=== PATIENT | female | born 1940 | race Two or more races ===

== ENCOUNTER → 2017-08-11 | Outpatient (CLI) | payer OTHER ==
--- NOTE | 2017-08-12 06:43 | HKNOTE ---
DATE OF SERVICE: 08/11/2017 CHIEF COMPLAINT: Right knee pain. HISTORY OF PRESENT ILLNESS: This is a 77-year-old female complaining of severe debilitating right knee pain that has been worsening. The pain is constant. It interferes with her activities of daily living. She is unable to ambulate. She uses a cane. She has seen Dr. Manpreet Damon at [facility] and was told that she needs a total knee arthroplasty. She has attempted activity modifications and pain medications, without any pain relief. The pain is rated as 10/10 daily. It is sharp. It is mostly on the outside of the right knee. She denies any groin, hip or back pain. PHYSICAL EXAMINATION: GAIT: Antalgic gait. Use of a cane. RIGHT HIP: Range of motion 0-90 degrees, 50 degrees external rotation, 20 degrees internal rotation. Negative straight leg raise. Negative Herbert's. Negative Stinchfield test. RIGHT KNEE: Valgus alignment. Tender over the lateral joint line. Crepitus with range of motion; 10-75 degrees range of motion passively correctable to neutral alignment. Stable to varus/valgus stress. Negative Kai's, negative anterior drawer, negative posterior drawer, negative Faisal's test. NEUROVASCULAR: Strength of the tibialis anterior, gastrocsoleus, hamstrings, and quadriceps 5/5. Sensation intact to light touch throughout the right lower extremity. Palpable pulses. IMAGING: RIGHT KNEE: Three-views of the right knee demonstrate valgus alignment. There is end-stage degenerative changes of the lateral compartment with joint space narrowing, marginal osteophytes, and subchondral sclerosis. There are also degenerative changes of the patellofemoral joint with osteophytes. IMPRESSION: A 77-year-old female with end-stage right knee osteoarthritis who has failed nonoperative management. PLAN: I discussed the risks associated with a right total knee arthroplasty. The patient would like to proceed with surgery. We will request authorization for right total knee arthroplasty. She will return in 4 weeks for preoperative counseling. Dictated By: Oumou Ortiz MD /hermelinda/mary /Document#: [id number]
== END | disposition home or self-care (01) ==
LOC: HKI 14:25
PROVIDERS: ATTEND Orthopaedic Surgery Adult Reconstructive Orthopaedic Surgery
DX: M17.11 Unilateral primary osteoarthritis, right knee (principal)
CPT/HCPCS: G0463

== ENCOUNTER → 2017-09-29 | Outpatient (CLI) | payer OTHER ==
--- NOTE | 2017-09-29 17:56 | RADRPT ---
PROCEDURE: Right knee radiographs. CLINICAL INDICATION: Right knee pain. TECHNIQUE: Three views. Weight bearing. Frontal, lateral, and patellar view. COMPARISON: No prior studies are available for comparison. FINDINGS: There is no fracture or dislocation. The soft tissues are normal. There is diffuse osteopenia. There are degenerative changes with osteophytes arising from all 3 join t compartment margins. There is lateral joint compartment narrowing, subarticular sclerosis, and def ormity. There is associated valgus deformity. There is no lytic or blastic lesion. There is no radiopaque foreign body. IMPRESSION: 1. Severe degenerative changes of the right knee with valgus deformity. 2. Diffuse osteopenia. RPTAT: QQ .Darwin Banegas MD, MD Date Time Electronically viewed and signed by .Darwin Banegas MD, on 09/29/2017 17:56 .R/
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
== END | disposition home or self-care (01) ==
LOC: HKI 13:27
PROVIDERS: ATTEND Orthopaedic Surgery Adult Reconstructive Orthopaedic Surgery
DX: M17.11 Unilateral primary osteoarthritis, right knee (principal); M21.061 Valgus deformity, not elsewhere classified, right knee
CPT/HCPCS: G0463

== ENCOUNTER 2017-10-05 06:24 | Inpatient (IN) | payer OTHER ==
[2017-10-04 10:30] VITALS: BMI 25.8
[~2017-10-05] VITALS: Ht 152.4 cm; Wt 56.9 kg
[2017-10-05] VITALS (29 sets, daily range): BP systolic 101–141; BP diastolic 49–95; PULSE 64–96; RESP 11–46; Ht 152.4 cm; Wt 56.9 kg
[~2017-10-05 06:24] MED LIST: ROPIVACAINE 0.2% 60 ML, morphine SULFATE (PF) 4 MG, CLONIDINE 100 MCG, KETOROLAC 30 MG,... INJ SCH
[2017-10-05] MEDS ORDERED: OXYCODONE/ACETAMINOPHEN (5/325) TAB PO PRN ×2 (06:30)
[2017-10-05] MEDS ORDERED: EPHEDrine SULFATE 50 MG/5 ML SYG IV PRN (06:30)
[2017-10-05] MEDS ORDERED: LABETALOL HCL 20MG INJ IV PRN (06:30)
[2017-10-05] MEDS ORDERED: HYDROmorphONE (0.2 MG/ML) 10ML SYG IV PRN ×3 (06:30)
[2017-10-05] MEDS ORDERED: MIDAZOLAM 1 MG/ML 2 ML INJ IV PRN (06:30)
[2017-10-05] MEDS ORDERED: hydrALAzine 20 MG INJ IV PRN (06:30)
[2017-10-05] MEDS ORDERED: DIPHENHYDRAMINE 50 MG INJ IV PRN (06:30)
[2017-10-05] MEDS ORDERED: morphine (1 MG/ML) 10ML SYRINGE IV PRN ×3 (06:30)
[2017-10-05] MEDS ORDERED: FENTAnyl 50 MCG/ML VIAL IV PRN ×2 (06:30)
[2017-10-05] MEDS ORDERED: MEPERIDINE 25 MG INJ IV PRN (06:30)
[2017-10-05] MEDS ORDERED: ATROPINE 1 MG/10 ML SYRINGE IV PRN (06:30)
[2017-10-05] MEDS ORDERED: ONDANSETRON 4 MG INJ IV PRN (06:30)
--- NOTE | 2017-10-05 06:35 | HPN ---
Date/Time of Note Date/Time of Note DATE: 10/05/17 TIME: 06:34 Interval H&P Admission Note Pt. seen H&P reviewed: No system changes CHRIS PETERS PA-C Oct 05, 2017 06:35
[2017-10-05] MEDS ORDERED: PROPOFOL 20 ML ONE (06:45)
[2017-10-05] MEDS ORDERED: NEOSTIGMINE 3 MG/3 ML SYRINGE ONE (06:45)
[2017-10-05] MEDS ORDERED: ROCURONIUM 50 MG INJ ONE (06:45)
[2017-10-05] MEDS ORDERED: GLYCOPYRROLATE 0.4 MG INJ ONE (06:45)
[2017-10-05] MEDS ORDERED: LIDOCAINE 2% (SDV) 5 ML INJ ONE (06:45)
[2017-10-05] MEDS ORDERED: MIDAZOLAM 1 MG/ML 2 ML INJ ONE (06:46)
[2017-10-05] MEDS ORDERED: FENTAnyl 50 MCG/ML VIAL ONE (06:47)
[2017-10-05] MEDS ORDERED: DEXAMETHASONE 4 MG/ML 1 ML INJ ONE (06:47)
[2017-10-05] MEDS ORDERED: ONDANSETRON 4 MG INJ ONE (06:47)
[2017-10-05] MEDS ORDERED: LIDOCAINE 2%/EPI 30 ML INJ ONE (06:58)
[2017-10-05] MEDS ORDERED: ROPIVACAINE 0.5 % 30 ML VIAL ONE (06:59)
[2017-10-05] MEDS ORDERED: DEXAMETHASONE 4 MG/ML 1 ML INJ IV ONE (07:00)
[2017-10-05] MEDS ORDERED: SOD CHLORIDE 0.9% IVPB ONE (07:00)
[2017-10-05] MEDS ORDERED: oxyCODONE (CR) 10 MG TAB [oxyCONTIN] PO ONE (07:00)
[2017-10-05] MEDS ORDERED: LANSOPRAZOLE 30 MG CAP PO ONE (07:00)
[2017-10-05] MEDS ORDERED: CEFAZOLIN 2 GM/50 ML (PMX) 50 ML IVPB ONE (07:00)
[2017-10-05] MEDS ORDERED: LACTATED RINGER'S 1,000 ML IV* SCH (07:00)
[2017-10-05] MEDS ORDERED: TRANEXAMIC ACID IVPB ONE (07:00)
[2017-10-05] MEDS ORDERED: CELECOXIB 200 MG CAP PO ONE (07:00)
[2017-10-05] MEDS ORDERED: ACETAMINOPHEN 1000MG/100ML IV 100 ML IVPB ONE (07:00)
[2017-10-05] MEDS ORDERED: ONDANSETRON 4 MG INJ IV ONE (07:00)
[2017-10-05] MEDS ORDERED: LABETALOL HCL 20MG INJ ONE (08:28)
[2017-10-05] MEDS ORDERED: hydrALAzine 20 MG INJ ONE (09:21)
[2017-10-05] MEDS ORDERED: CEFAZOLIN 1 GM INJ ONE (09:46)
[2017-10-05] MEDS: TRANEXAMIC ACID 1,000 MG in SOD CHLORIDE 0.9% 100 ML IV SCH ×2 (09:50→10:00)
[2017-10-05] MEDS: DEXTROSE 5%-LR 1,000 ML IV SCH ×3 (11:08→23:21)
--- NOTE | 2017-10-05 11:12 | SIPON ---
Date/Time of Note Date/Time of Note DATE: 10/05/17 TIME: 11:09 Operative Report Preoperative Diagnosis Right knee osteoarthritis Postoperative Diagnosis same Operation/Procedure Performed Right total knee arthroplasty Surgeon MD Jasson assistant production manager Jaspreet Weber MD Second assist: CHRIS PETERS PA-C Anesthesia: general Estimated blood loss: 250 - 300 ml's Transfusion Required none Specimen resected bone Grafts/Implants Alicia and Nephew Gensis II Size 4N femur, Size 1 tibia, 32mm patella, 13mm poly, [id number] stem Complications none NAIDA VILLAIVCENCIO MD Oct 05, 2017 11:12
--- NOTE | 2017-10-05 11:16 | PDOCDIS ---
Discharge Instructions DIAGNOSIS Discharge Diagnosis Status post right total knee replacement. CONDITION Patient Condition: Stable HOME CARE INSTRUCTIONS: Diet Instructions: Regular ACTIVITY: Activity Restrictions: No Restrictions Slowly Increase Activity Rest between Activity Avoid heavy lifting No Sexual Activity Do not Drive Do not operate Machinery Do not operate Power Tool Avoid Heavy Housework Keep Limb Elevated (Please keep leg in full extension while lying down/ resting. You may apply 3-4 pillows directly under your foot to keep leg at full extension.) Weight Bearing (As tolerated with front wheeled walker.) Bathing Restrictions: Shower (Keep area clean and dry while showering until postoperative appointment with Dr. payton.) FOLLOW UP/APPOINTMENTS Follow-up Plan Follow-up on postoperative appointment provided to you at your preoperative visit. CHRIS PETERS PA-C Oct 05, 2017 11:16
[2017-10-05] MEDS ORDERED: ALBUTEROL 0.083% (NEB) 2.5 MG/3 ML AMP ONE ×2 (11:26)
[2017-10-05] MEDS ORDERED: BETHANECHOL 25 MG TAB PO PRN (11:30)
[2017-10-05] MEDS ORDERED: BISACODYL 10 MG SUPP PR PRN (11:30)
[2017-10-05] MEDS ORDERED: SENNA/DOCUSATE NA (8.6MG/50MG) TAB PO PRN (11:30)
[2017-10-05] MEDS ORDERED: DIPHENHYDRAMINE 50 MG INJ IM PRN (11:30)
[2017-10-05] MEDS ORDERED: ASPIRIN (EC) 325 MG TAB PO ONE (11:30)
[2017-10-05] MEDS ORDERED: MEPERIDINE 10 MG/ML 30 ML PCA IV PRN (11:30)
[2017-10-05] MEDS ORDERED: MAGNESIUM HYDROXIDE 30ML CUP PO PRN (11:30)
[2017-10-05] MEDS ORDERED: DOCUSATE SODIUM 100 MG CAP PO ONE (11:30)
[2017-10-05] MEDS ORDERED: ZOLPIDEM 5 MG TAB PO PRN (11:30)
[2017-10-05] MEDS ORDERED: COUMADIN NOTE XX SCH (11:30)
[2017-10-05] MEDS ORDERED: NALOXONE (0.4 MG/ML) INJ IV PRN (11:30)
[2017-10-05] MEDS ORDERED: HYDROmorphONE 0.2 MG/ML PCA IV PRN (11:30)
[2017-10-05] MEDS ORDERED: NA PHOSPHATE/BIPHOS 133 ML ENEMA PR PRN (11:30)
[2017-10-05] MEDS ORDERED: RACEPINEPHRINE 2.25%(NEB) 0.5 ML AMP ONE (11:43)
[2017-10-05] MEDS ORDERED: CEFAZOLIN 1 GM/50 ML (PMX) 50 ML IVPB ONE (12:33)
[2017-10-05] MEDS: CEFAZOLIN 1 GM/50 ML (PMX) 50 ML IVPB SCH ×2 (12:37→21:49)
--- NOTE | 2017-10-05 12:41 | OPR ---
DATE OF OPERATION: 10/05/2017 PREOPERATIVE DIAGNOSIS: Right knee osteoarthritis. POSTOPERATIVE DIAGNOSIS: Right knee osteoarthritis. PROCEDURES PERFORMED: 1. Right total knee arthroplasty, CPT code 33515. SURGEON: Naida Ortiz MD ELECTROMECHANICAL INSPECTOR: 1. Jaspreet Weber MD 2. NIKOLAI Banda ANESTHESIOLOGIST: Dr. Clemons ANESTHESIA: General. ESTIMATED BLOOD LOSS: 300 mL. COMPLICATIONS: None. SPECIMENS: Resected bone. TOURNIQUET TIME: 86 minutes at 250 mmHg. DISPOSITION: To PACU in stable condition. IMPLANT USED: A Alicia and Nephew Tiffanie II size 4 narrow femur, size 1 tibial baseplate, 32 mm symmetric patella, a 13 mm posterior stabilized polyethylene 10 x 100 mm stem on the tibial baseplate. INDICATION FOR PROCEDURE: This is a 77-year-old female with endstage osteoarthritis of the right knee with had failed nonoperative management. Risks , benefits, alternatives of surgical intervention were discussed with the patient and informed consent was obtained. The risks of surgery include but are not limited to infection, deep venous thrombosis, pulmonary embolism, damage to neurovascular structures including the peroneal nerves, wound healing problems, loosening of the prosthesis, wear of prosthesis, need for revision surgery, need for blood transfusion, heart attack, stroke, risks associated with anesthesia and even . DESCRIPTION OF PROCEDURE: The patient was met in the preoperative suite and the correct operative site was confirmed and marked. She was then brought into operating room. After induction of general anesthesia, she was placed in the supine position on the operating room table. A tourniquet was applied to the right upper thigh, and the right lower extremity was prepped and draped in the usual sterile fashion. Before starting, a timeout was taken to identify the correct operative site and confirm that preoperative antibiotics consisting of 2 grams of IV Ancef, along with 1 gram of tranexamic acid were administered. At this point, the right leg was then elevated and exsanguinated using an Esmarch and tourniquet was insufflated for the above noted time. A midline incision was made and a median parapatellar arthrotomy was then performed. The lateral patellar retinacular ligaments were released and the patella was retracted laterally. The sleeve of tissue was released from the proximal medial tibia. The cruciate ligaments and the menisci were excised along with the suprapatellar fat pad. At this point, the intramedullary drill was then used and the distal femoral cutting block was pinned into place. The distal femoral cut was then completed. The femur was then subsequently sized to a size 4. The 4-in-1 cutting block was then pinned in 3 degrees of external rotation. The anterior and posterior condylar cuts followed by the anterior and manager product marketing chamfer cuts were then completed. At this point, the tibia was then subluxed anteriorly. Attempt was to use the navigation OrthAlign, but unsuccessful. The intramedullary tibial resection guide was then placed and 8 mm was resected off the medial tibia and 2 mm off the lateral tibia. At this point, the extension and flexion gaps were checked. It was noted that the knee was still slightly tighter laterally. Pie crusting technique of the posterior capsule was performed. The flexion, extension gaps were noted to be equal. At this point, the patella was then measured with calipers to 17 mm. An oscillating saw was used to cut 5 mm off the patella. The patella was sized to a 32 mm and then the 3 holes were drilled for the patellar button. The knee was then brought into flexion. The femoral component was placed and the femoral box cut was then made. The trial components were placed. The tibia was sized to a size 1. Trial components were placed. The knee was taken through range of motion using a 9 mm poly and noted to be hyperextension. A 13 mm polyethylene was placed and the knee was noted to have full extension with greater than 120 degrees of flexion and stable to varus valgus stress. The keel was punched for the tibia as well as a drill made for the stem. Trial components were removed. The knee was then thoroughly irrigated with pulse lavage and dried. The appropriate sized components were then cemented with the removal of excess cement. The trial 10 mm polyethylene was used while the knee was held in extension until the cement cured. Similarly, the patella was pulse lavaged, dried and the patellar button was cemented. Once the cement had cured, the trial polyethylene was removed and a 13 mm posterior stabilized polyethylene was placed. Again, stability was unchanged with full range of motion. The tourniquet was deflated and the tranexamic acid and antibiotics were redosed. The extensor mechanism was closed using #1 Vicryl interrupted [id number] fashion followed by closure with subcutaneous 2-0 Vicryl and the skin with 3-0 Monocryl in subcuticular fashion with Steri-Strips. Sterile dressing, Jonathan wrap and a PolarCare unit were applied. There were no complications. She was transferred to the postoperative care unit in stable condition. POSTOPERATIVE CARE: Patient will be weightbearing as tolerated. She will work with physical therapy. She will receive two additional doses of IV Ancef. She will have SCDs along with aspirin 325 mg p.o. b.i.d. for 6 weeks. Upon discharge, she will follow up in my office at [facility] within 2 weeks postoperatively. Dictated By: NAIDA FITZPATRICK/ANUSHKA Conf#: [id number] DID#: [id number] MTDD
--- NOTE | 2017-10-05 13:39 | RADRPT ---
PROCEDURE: Right knee x-ray CLINICAL INDICATION: Postop evaluation. TECHNIQUE: AP, lateral and oblique views of the knee were obtained. COMPARISON: Three-view right knee 09/29/2017. FINDINGS: There is subcutaneous emphysema related to recent total right knee arthroplasty. The components appe ar anatomically aligned. There is an air-fluid level in the suprapatellar bursa. The fibula is unrem arkable as visualized. No drainage tube is identified in place. IMPRESSION: 1. Status post total right knee arthroplasty with postsurgical changes as described. RPTAT:AAJJ Physician Anjali Date Time Electronically viewed and signed by Davi Hernandez Physician on 10/05/2017 13:39 JUAN/
[2017-10-05] MEDS ORDERED: POLYMYXIN/BACITRACIN 1L IRRIG ONE (13:55)
[2017-10-05] MEDS: ACETAMINOPHEN 1000MG/100ML IV 100 ML IVPB SCH ×2 (15:45→21:07)
[2017-10-05] MEDS: oxyCODONE 5 MG TAB PO PRN (15:45)
[2017-10-05] MEDS: GABAPENTIN 100 MG CAP PO SCH (20:43)
--- NOTE | 2017-10-05 21:18 | CONS ---
Date/Time of Note Date/Time of Note DATE: 10/05/17 TIME: 20:58 Assessment/Plan Assessment/Plan Chief Complaint/Hosp Course Assessment and plan 1. Osteoarthritis of right knee status post total right knee total arthroplasty. Continue with orthopedic surgery recommendations. Continue with analgesics. Physical therapy to follow. Consultation process time: Greater than 30 minutes Discussed plan of care with Dr. Soto Problems: Consultation Date/Type/Reason Admit Date/Time Oct 05, 2017 at 06:24 Hx of Present Illness This is a 77-year-old female with history of right knee osteoarthritis, previous cholecystectomy, came to [facility] for elective procedure for right knee total arthroplasty. Patient reports she has been having pain in her right knee since March 2017 which progressively got worse. She did come to [facility] for elective surgery. Patient did undergo right knee pleural plasty and did tolerate procedure well. Vital signs did remain stable. She was able to ambulate with physical therapy today status post surgery. We will evaluate her for the aformentiond issues. 12 point review of systems obtained and entirely negative except that mentioned in the history of Past Medical History Medical/surgical history 1. Recent right knee total arthroplasty. 2. Osteoarthritis Social History Smoking Status: Never smoker Exam/Review of Systems Vital Signs Vitals Vital Signs Date Time Temp Pulse Resp B/P Pulse Ox O2 Delivery O2 Flow Rate FiO2 10/05/17 19:56 98.3 73 20 115/59 96 10/05/17 18:00 Nasal Cannula 2.0 Exam Constitutional: oriented Psych: nl mood/affect Head: normocephalic Eyes: nl conjunctiva Neck: non-tender, supple Respiratory: clear to auscultation Cardiovascular: regular rate and rhythm Gastrointestinal: non-tender, soft Musculoskeletal: nl extremities to inspection Neurological: HORSERADISH MAKER II-XII intact, nl mental status, nl speech Skin: nl turgor Results Results 24 hrs Laboratory Tests Test 10/05/17 12:54 Bedside Glucose 165 Medications Medications Current Medications Dextrose/Lactated Ringer's 1,000 ml @ 80 mls/hr [id number] IV Last administered on 10/05/17 15:53; Admin Dose 80 MLS/HR; Start 10/05/17 at 11:08 Acetaminophen (Ofirmev 1000mg/ 100ml Iv) 100 ml @ 400 mls/hr Q8 IVPB Last administered on 11/8/17at 15:45; Admin Dose 400 MLS/HR; Start 10/05/17 at 14:00 ; Stop 10/07/17 at 06:14 Zolpidem Tartrate (Ambien) 5 mg HS PRN PO INSOMNIA; Start 10/05/17 at 11:30 Ondansetron HCl 4 mg 4 mg Q4H PRN IV NAUSEA AND/OR VOMITING; Start 10/06/17 at 11:30 Cefazolin Sodium (Ancef 1 Gm/50 ml (Pmx)) 50 ml @ 100 mls/hr Q8 IVPB Last administered on 10/05/17t 12:37; Admin Dose 100 MLS/HR; Start 10/05/17 at 14:00 ; Stop 10/06/17 at 06:29 Miscellaneous Information (Note) NOTE XX ; Start 10/05/17 at 11:30 Aspirin (Ecotrin) 325 mg BID PO ; Start 10/06/17 at 09:00 Celecoxib (Celebrex) 200 mg BID PO ; Start 10/06/17 at 09:00 Dexamethasone (Decadron) 4 mg DAILY@07 IV ; Start 10/06/17 at 07:00; Stop 10/09 at 06:59 Pantoprazole (Protonix Tab) 40 mg DAILY@06 PO ; Start 10/06/17 at 06:00 Docusate Sodium/ Ferrous Fumarate (Fritz-Sequels) 1 tab BID PO ; Start 10/06/17 at 09:00 Docusate Sodium (Colace) 200 mg BID PO ; Start 10/06/17 at 09:00; Stop at 08:59 Simethicone (Mylicon) 80 mg TID PRN PO DISTENSION/GAS/BLOATING; Start 10/05/17 at 11:30 Senna/Docusate Sodium (Senokot-S) 2 tab BID PRN PO CONSTIPATION; Start at 11:30 Magnesium Hydroxide (Milk Of Mag) 30 ml HS PRN PO CONSTIPATION; Start 10/05/17 at 11:30 Bisacodyl (Dulcolax Supp) 10 mg DAILY PRN [place] CONSTIPATION; Start 10/05/17 at 11 :30 Sodium Biphosphate/ Sodium Phosphate (Fleet Enema) 133 ml DAILY PRN [place] CONSTIPATION; Start 10/05/17 at 11:30 Diphenhydramine HCl (Benadryl) 25 mg Q4H PRN IM ITCHING OR RASH; Start at 11:30 Naloxone HCl (Narcan) 0.2 mg Q2M PRN IV DECREASED REPIRATORY RATE; Start at 11:30 Gabapentin (Neurontin) 100 mg BID PO Last administered on 10/05/17 20:43; Admin Dose 100 MG; Start 10/05/17 at 21:00; Stop 10/08/17 at 20:59 Oxycodone HCl (Roxicodone) 20 mg Q3H PRN PO PAIN LEVEL 8-10 Last administered on 10/05/17 15:45; Admin Dose 20 MG; Start 10/05/17 at 15:41 Oxycodone HCl (Roxicodone) 10 mg Q3H PRN PO PAIN LEVEL 4-7; Start 10/05/17 at 15:41 DRAGAN ALFONSO Oct 05, 2017 21:17
[2017-10-06] MEDS: CEFAZOLIN 1 GM/50 ML (PMX) 50 ML IVPB SCH (05:37)
[2017-10-06] MEDS: DEXTROSE 5%-LR 1,000 ML IV SCH (05:37)
[2017-10-06] MEDS: PANTOPRAZOLE (EC) 40 MG TAB PO SCH (05:38)
[2017-10-06] MEDS: oxyCODONE 5 MG TAB PO PRN ×4 (05:53→20:11)
[2017-10-06] MEDS: ACETAMINOPHEN 1000MG/100ML IV 100 ML IVPB SCH ×3 (06:14→22:20)
[2017-10-06] MEDS: DEXAMETHASONE 4 MG/ML 1 ML INJ IV SCH (06:15)
[2017-10-06 07:20] LABS: BASOPHILS % 0.2 % (0.0-2.0); EOSINOPHILS % 0.1 % (0.0-7.0); HEMATOCRIT 26.9 % (37.0-47.0); HEMOGLOBIN 8.5 g/dl (12.0-16.0); LYMPHOCYTES # 1.7 10^3/ul (0.8-2.9); LYMPHOCYTES % 16.3 % (15.0-51.0); MEAN CORPUSCULAR HEMOGLOBIN 30.6 pg (29.0-33.0); MEAN CORPUSCULAR HGB CONC 31.6 g/dl (32.0-37.0); MEAN CORPUSCULAR VOLUME 96.8 fl (82.0-101.0); MEAN PLATELET VOLUME 9.9 fl (7.4-10.4); MONOCYTE # 1.2 10^3/ul (0.3-0.9); MONOCYTES % 11.6 % (0.0-11.0); NEUTROPHIL # 7.4 10^3/ul (1.6-7.5); NEUTROPHILS % 71.4 % (39.0-77.0); PLATELET COUNT 309 10^3/UL (140-415); RED BLOOD COUNT 2.78 10^6/ul (4.20-5.40); RED CELL DISTRIBUTION WIDTH 12.5 % (11.5-14.5); WHITE BLOOD COUNT 10.4 10^3/ul (4.8-10.8)
[2017-10-06 08:30] VITALS: BP 119/56; RESP 18
--- NOTE | 2017-10-06 08:33 | PN ---
Date/Time of Note Date/Time of Note DATE: 10/06/17 TIME: 08:30 Assessment/Plan VTE Prophylaxis VTE Prophylaxis Intervention: ambulation, SCD's, other (Aspirin 325 mg) Lines/Catheters IV Catheter Type (from Nrsg): Peripheral IV [place] in Place (from Nrsg): Yes Assessment/Plan Assessment/Plan -Pain Meds as needed -Dressing is clean and intact. -OOB with PT -ASA/SCDs for DVT Prophylaxis -Continue monitoring with Internal Medicine -Patient Stable Subjective 24 Hr Interval Summary 77-year-old female postop day 1 status post right total knee arthroplasty. Patient is doing well with no acute events overnight. Patient does have pain complaints, mostly with movement to the knee. Patient has initiated physical therapy yesterday being able to walk about 5 feet. Pain with weightbearing. Denies any calf pain, chest pain/tightness or shortness of breath. Pain Control: mild Exam/Review of Systems Vital Signs Vitals Vital Signs Date Time Temp Pulse Resp B/P Pulse Ox O2 Delivery O2 Flow Rate FiO2 10/05/17 23:49 98.6 72 18 112/60 96 10/05/17 20:00 Nasal Cannula 2.0 Intake and Output 10/05/17 10/05/17 10/06/17 15:00 23:00 07:00 Intake Total 2221.38 ml 1110 ml 1630 ml Output Total 850 ml 600 ml 1500 ml Balance 1371.38 ml 510 ml 130 ml Exam Free Text/Dictation -No complications with dressing intact. -5/5 Tibialis Anterior, EHL Gastrocnemius/Soleus and Peroneals -Pain with range of motion. Patient able to actively flex up to 20. Patient is able to fully extend today. -Normal Sensation -Palpable DP/PT, Capillary Refill <2 secs -No Distal Edema -Negative Manny Sign/No calf pain -Toes Freely Movable Results Result Diagram: 10/06/17 0648 CHRIS PETERS PA-C Oct 06, 2017 08:33
[2017-10-06] MEDS ORDERED: oxyCODONE 5 MG TAB PO PRN ×2 (09:00)
[2017-10-06] MEDS: ASPIRIN (EC) 325 MG TAB PO SCH ×2 (09:23→20:11)
[2017-10-06] MEDS: GABAPENTIN 100 MG CAP PO SCH ×2 (09:23→20:11)
[2017-10-06] MEDS: FERROUS FUMARATE (SR) TAB PO SCH ×2 (09:23→20:11)
[2017-10-06] MEDS: DOCUSATE SODIUM 100 MG CAP PO SCH ×2 (09:23→20:11)
[2017-10-06] MEDS: CELECOXIB 200 MG CAP PO SCH ×2 (09:23→20:11)
[2017-10-06] MEDS ORDERED: ONDANSETRON 4 MG INJ IV PRN (11:30)
--- NOTE | 2017-10-06 14:30 | PN ---
Date/Time of Note Date/Time of Note DATE: 10/06/17 TIME: 14:26 Assessment/Plan VTE Prophylaxis VTE Prophylaxis Intervention: SCD's Lines/Catheters IV Catheter Type (from Nrs): Peripheral IV Urinary Cath still in place: No Assessment/Plan Chief Complaint/Hosp Course Assessment and plan 1. Osteoarthritis of right knee status post total right knee total arthroplasty. continue PT. analgesics adjusted as needed 2. Anemia. Suspect postsurgical. Monitor for now. dispo/plan. continue PT . adjust analgesics as needed Discussed plan of care with Dr. Soto Problems: Subjective 24 Hr Interval Summary Free Text/Dictation no s/s of distress. still has some pain on right knee Exam/Review of Systems Vital Signs Vitals Vital Signs Date Time Temp Pulse Resp B/P Pulse Ox O2 Delivery O2 Flow Rate FiO2 10/06/17 08:30 98.2 70 18 119/56 95 10/05/17 20:00 Nasal Cannula 2.0 Intake and Output 10/05/17 10/05/17 10/06/17 14:59 22:59 06:59 Intake Total 2221.38 ml 1110 ml 1630 ml Output Total 850 ml 600 ml 1500 ml Balance 1371.38 ml 510 ml 130 ml Exam Constitutional: oriented Psych: nl mood/affect Head: normocephalic Eyes: nl conjunctiva Neck: non-tender, supple Respiratory: clear to auscultation Cardiovascular: regular rate and rhythm Gastrointestinal: non-tender, soft Musculoskeletal: right knee with dressing in place Neurological: PACKAGE HANDLER II-XII intact, nl mental status, nl speech Skin: nl turgor Results Result Diagram: 10/06/17 0648 Results 24 hrs Laboratory Tests Test 10/06/17 06:48 White Blood Count 10.4 Red Blood Count 2.78 L Hemoglobin 8.5 L Hematocrit 26.9 L Mean Corpuscular Volume 96.8 Mean Corpuscular Hemoglobin 30.6 Mean Corpuscular Hemoglobin Concent 31.6 L Red Cell Distribution Width 12.5 Platelet Count 309 Mean Platelet Volume 9.9 Neutrophils % 71.4 Lymphocytes % 16.3 Monocytes % 11.6 H Eosinophils % 0.1 Basophils % 0.2 Nucleated Red Blood Cells % 0.0 Neutrophils # 7.4 Lymphocytes # 1.7 Monocytes # 1.2 H Eosinophils # 0.0 Basophils # 0.0 Nucleated Red Blood Cells # 0.0 Medications Medications Current Medications Dextrose/Lactated Ringer's 1,000 ml @ 80 mls/hr [id number] IV Last administered on 10/06/17 05:37; Admin Dose 80 MLS/HR; Start 10/05/17 at 11:08 Acetaminophen (Ofirmev 1000mg/ 100ml Iv) 100 ml @ 400 mls/hr Q8 IVPB Last administered on 10/06/17 06:14; Admin Dose 400 MLS/HR; Start 10/05/17 at 14:00 ; Stop 10/07/17 at 06:14 Zolpidem Tartrate (Ambien) 5 mg HS PRN PO INSOMNIA; Start 10/05/17 at 11:30 Ondansetron HCl (Zofran Inj) 4 mg Q4H PRN IV NAUSEA AND/OR VOMITING; Start 10/06/17 at 11:30 Miscellaneous Information (Note) NOTE XX ; Start 10/05/17 at 11:30 Aspirin (Ecotrin) 325 mg BID PO Last administered on 10/06/17 09:23; Admin Dose 325 MG; Start 10/06/17 at 09:00 Celecoxib (Celebrex) 200 mg BID PO Last administered on 10/06/17 09:23; Admin Dose 200 MG; Start 10/06/17 at 09:00 Dexamethasone (Decadron) 4 mg DAILY@07 IV Last administered on 10/06/17 06:15 ; Admin Dose 4 MG; Start 10/06/17 at 07:00; Stop 10/09/17 at 06:59 Pantoprazole (Protonix Tab) 40 mg DAILY@06 PO Last administered on 10/06/17 05 :38; Admin Dose 40 MG; Start 10/06/17 at 06:00 Docusate Sodium/ Ferrous Fumarate (Fritz-Sequels) 1 tab BID PO Last administered on 10/06/17 09:23; Admin Dose 1 TAB; Start 10/06/17 at 09:00 Docusate Sodium (Colace) 200 mg BID PO Last administered on 10/06/17 09:23; Admin Dose 200 MG; Start 10/06/17 at 09:00; Stop 10/09/17 at 08:59 Simethicone (Mylicon) 80 mg TID PRN PO DISTENSION/GAS/BLOATING; Start 10/05/17 at 11:30 Senna/Docusate Sodium (Senokot-S) 2 tab BID PRN PO CONSTIPATION; Start at 11:30 Magnesium Hydroxide (Milk Of Mag) 30 ml HS PRN PO CONSTIPATION; Start 10/05/17 at 11:30 Bisacodyl (Dulcolax Supp) 10 mg DAILY PRN [place] CONSTIPATION; Start 10/05/17 at 11 :30 Sodium Biphosphate/ Sodium Phosphate (Fleet Enema) 133 ml DAILY PRN [place] CONSTIPATION; Start 10/05/17 at 11:30 Diphenhydramine HCl (Benadryl) 25 mg Q4H PRN IM ITCHING OR RASH; Start at 11:30 Naloxone HCl (Narcan) 0.2 mg Q2M PRN IV DECREASED REPIRATORY RATE; Start at 11:30 Gabapentin (Neurontin) 100 mg BID PO Last administered on 10/06/17 09:23; Admin Dose 100 MG; Start 10/05/17 at 21:00; Stop 10/08/17 at 20:59 Oxycodone HCl (Roxicodone) 20 mg Q3H PRN PO PAIN LEVEL 8-10 Last administered on 10/06/17 09:22; Admin Dose 20 MG; Start 10/05/17 at 15:41 Oxycodone HCl (Roxicodone) 10 mg Q3H PRN PO PAIN LEVEL 4-7; Start 10/05/17 at 15:41 DRAGAN ALFONSO Oct 06, 2017 14:30
[2017-10-06 16:00] VITALS: BP 96/54; RESP 18
[2017-10-06] MEDS: HEPARIN 5,000 UNIT/0.5 ML VIAL SC SCH (20:15)
[2017-10-06 20:46] VITALS: BP 118/55; RESP 20
[2017-10-07] MEDS: DEXTROSE 5%-LR 1,000 ML IV SCH (00:25)
[2017-10-07 02:40] VITALS: BP 109/55; RESP 18
[2017-10-07 05:09] LABS: BASOPHILS % 0.4 % (0.0-2.0); EOSINOPHILS # 0.2 10^3/ul (0.0-0.5); EOSINOPHILS % 1.9 % (0.0-7.0); HEMATOCRIT 26.3 % (37.0-47.0); HEMOGLOBIN 8.4 g/dl (12.0-16.0); LYMPHOCYTES # 2.9 10^3/ul (0.8-2.9); LYMPHOCYTES % 30.5 % (15.0-51.0); MEAN CORPUSCULAR HEMOGLOBIN 31.5 pg (29.0-33.0); MEAN CORPUSCULAR HGB CONC 31.9 g/dl (32.0-37.0); MEAN CORPUSCULAR VOLUME 98.5 fl (82.0-101.0); MEAN PLATELET VOLUME 9.8 fl (7.4-10.4); MONOCYTE # 1.1 10^3/ul (0.3-0.9); MONOCYTES % 11.2 % (0.0-11.0); NEUTROPHIL # 5.2 10^3/ul (1.6-7.5); NEUTROPHILS % 55.8 % (39.0-77.0); PLATELET COUNT 283 10^3/UL (140-415); RED BLOOD COUNT 2.67 10^6/ul (4.20-5.40); RED CELL DISTRIBUTION WIDTH 12.8 % (11.5-14.5); WHITE BLOOD COUNT 9.4 10^3/ul (4.8-10.8)
[2017-10-07 05:44] LABS: CREATININE 0.79 mg/dl (0.44-1.00)
[2017-10-07] MEDS: PANTOPRAZOLE (EC) 40 MG TAB PO SCH (05:56)
[2017-10-07] MEDS: ACETAMINOPHEN 1000MG/100ML IV 100 ML IVPB SCH (05:56)
[2017-10-07] MEDS: DEXAMETHASONE 4 MG/ML 1 ML INJ IV SCH (05:56)
[2017-10-07 08:19] VITALS: BP 112/53; RESP 18
[2017-10-07] MEDS: HEPARIN 5,000 UNIT/0.5 ML VIAL SC SCH (08:34)
[2017-10-07] MEDS: FERROUS FUMARATE (SR) TAB PO SCH ×2 (08:47→20:37)
[2017-10-07] MEDS: DOCUSATE SODIUM 100 MG CAP PO SCH ×2 (08:47→20:37)
[2017-10-07] MEDS: GABAPENTIN 100 MG CAP PO SCH ×2 (08:47→20:37)
[2017-10-07] MEDS: CELECOXIB 200 MG CAP PO SCH ×2 (08:47→20:37)
[2017-10-07] MEDS: ASPIRIN (EC) 325 MG TAB PO SCH ×2 (08:51→20:37)
[2017-10-07] MEDS: oxyCODONE 5 MG TAB PO PRN ×4 (08:56→19:40)
--- NOTE | 2017-10-07 09:17 | PN ---
Date/Time of Note Date/Time of Note DATE: 10/07/17 TIME: 09:14 Assessment/Plan VTE Prophylaxis VTE Prophylaxis Intervention: ambulation, SCD's Lines/Catheters IV Catheter Type (from Nrsg): Peripheral IV [place] in Place (from Nrsg): No Assessment/Plan Assessment/Plan -Pain Meds as needed -Original plan was aspirin 325 mg for 6 weeks. Hospitalist has initiated heparin for anticoagulation. We will defer to hospitalist for plan of care in regards to postoperative anticoagulation heparin versus aspirin 325 mg. -Patient will need clearance from hospitalist prior to discharge. -Continue monitoring as outpatient on discharge -Follow-up at scheduled postop outpatient appointment or sooner if there is any issue. -Patient Stable -Discharge to SNF vs. ARU as she has no help at home. Patient also resides in apartment complex where there is no elevator access and has to climb 2 flights of stairs. Subjective 24 Hr Interval Summary 77-year-old female postop day 2 status post right total knee arthroplasty. Patient has pain to the knee especially with range of motion and weightbearing. Pain is controlled with pain medication. No acute overnight events. Resting comfortably with pillows under the foot/ankle and leg in full extension. Exam/Review of Systems Vital Signs Vitals Vital Signs Date Time Temp Pulse Resp B/P Pulse Ox O2 Delivery O2 Flow Rate FiO2 10/07/17 08:19 98.0 73 18 112/53 95 10/05/17 20:00 Nasal Cannula 2.0 Intake and Output 10/06/17 10/06/17 10/07/17 15:00 23:00 07:00 Intake Total 200 ml 1730 ml Output Total 400 ml Balance 200 ml 1330 ml Exam Free Text/Dictation -No complications with dressing intact. -5/5 Tibialis Anterior, EHL Gastrocnemius/Soleus and Peroneals -Normal Sensation -Palpable DP/PT, Capillary Refill <2 secs -No Distal Edema -Negative Manny Sign/No calf pain -Toes Freely Movable Constitutional: alert, oriented, well developed Results Result Diagram: 10/07/17 0443 10/07/17 0443 CHRIS PETERS PA-C Oct 07, 2017 09:17
--- NOTE | 2017-10-07 12:50 | CONS ---
Date/Time of Note Date/Time of Note DATE: 10/07/17 TIME: 12:45 Consult Date/Type/Reason Admit Date/Time Oct 05, 2017 at 06:24 Initial Consult Date Subjective No acute events overnight, seen by primary team and physical therapy team. Objective Vital Signs Date Time Temp Pulse Resp B/P Pulse Ox O2 Delivery O2 Flow Rate FiO2 10/07/17 08:19 98.0 73 18 112/53 95 10/05/17 20:00 Nasal Cannula 2.0 Intake and Output 10/06/17 10/06/17 10/07/17 15:00 23:00 07:00 Intake Total 200 ml 1730 ml Output Total 400 ml Balance 200 ml 1330 ml Exam Constitutional: oriented Psych: nl mood/affect Head: normocephalic Eyes: nl conjunctiva Neck: non-tender, supple Respiratory: clear to auscultation Cardiovascular: regular rate and rhythm Gastrointestinal: non-tender, soft Musculoskeletal: right knee with dressing in place Neurological: BUTTER WRAPPER II-XII intact, nl mental status, nl speech Skin: nl turgor Results/Medications Result Diagram: 10/07/1744210/07/17442 Results 24 hrs Laboratory Tests Test 10/07/17 04:43 White Blood Count 9.4 Red Blood Count 2.67 L Hemoglobin 8.4 L Hematocrit 26.3 L Mean Corpuscular Volume 98.5 Mean Corpuscular Hemoglobin 31.5 Mean Corpuscular Hemoglobin Concent 31.9 L Red Cell Distribution Width 12.8 Platelet Count 283 Mean Platelet Volume 9.8 Neutrophils % 55.8 Lymphocytes % 30.5 Monocytes % 11.2 H Eosinophils % 1.9 Basophils % 0.4 Nucleated Red Blood Cells % 0.0 Neutrophils # 5.2 Lymphocytes # 2.9 Monocytes # 1.1 H Eosinophils # 0.2 Basophils # 0.0 Nucleated Red Blood Cells # 0.0 Sodium Level 142 Potassium Level 4.0 Chloride Level 108 Carbon Dioxide Level 26 Anion Gap 12 Blood Urea Nitrogen 14 Creatinine 0.79 Glucose Level 105 Calcium Level 8.0 L Medications Current Medications Zolpidem Tartrate (Ambien) 5 mg HS PRN PO INSOMNIA; Start 10/05/17 at 11:30 Ondansetron HCl (Zofran Inj) 4 mg Q4H PRN IV NAUSEA AND/OR VOMITING; Start 10/06/17 at 11:30 Miscellaneous Information (Note) NOTE XX ; Start 10/05/17 at 11:30 Aspirin (Ecotrin) 325 mg BID PO Last administered on 10/07/17 08:51; Admin Dose 325 MG; Start 10/06/17 at 09:00 Celecoxib (Celebrex) 200 mg BID PO Last administered on 10/07/17 08:47; Admin Dose 200 MG; Start 10/06/17 at 09:00 Dexamethasone (Decadron) 4 mg DAILY@07 IV Last administered on 10/07/17 05:56 ; Admin Dose 4 MG; Start 10/06/17 at 07:00; Stop 10/09/17 at 06:59 Pantoprazole (Protonix Tab) 40 mg DAILY@06 PO Last administered on 10/07/17 05:56; Admin Dose 40 MG; Start 10/06/17 at 06:00 Docusate Sodium/ Ferrous Fumarate (Fritz-Sequels) 1 tab BID PO Last administered on 10/07/17 08:47; Admin Dose 1 TAB; Start 10/06/17 at 09:00 Docusate Sodium (Colace) 200 mg BID PO Last administered on 10/07/17 08:47; Admin Dose 200 MG; Start 10/06/17 at 09:00; Stop 10/09/17 at 08:59 Simethicone (Mylicon) 80 mg TID PRN PO DISTENSION/GAS/BLOATING; Start 10/05/17 at 11:30 Senna/Docusate Sodium (Senokot-S) 2 tab BID PRN PO CONSTIPATION; Start at 11:30 Magnesium Hydroxide (Milk Of Mag) 30 ml HS PRN PO CONSTIPATION; Start 10/05/17 at 11:30 Bisacodyl (Dulcolax Supp) 10 mg DAILY PRN [place] CONSTIPATION; Start 10/05/17 at 11 :30 Sodium Biphosphate/ Sodium Phosphate (Fleet Enema) 133 ml DAILY PRN [place] CONSTIPATION; Start 10/05/17 at 11:30 Diphenhydramine HCl (Benadryl) 25 mg Q4H PRN IM ITCHING OR RASH; Start at 11:30 Naloxone HCl (Narcan) 0.2 mg Q2M PRN IV DECREASED REPIRATORY RATE; Start at 11:30 Gabapentin (Neurontin) 100 mg BID PO Last administered on 10/07/17 08:47; Admin Dose 100 MG; Start 10/05/17 at 21:00; Stop 10/08/17 at 20:59 Oxycodone HCl (Roxicodone) 20 mg Q3H PRN PO PAIN LEVEL 8-10 Last administered on 10/06/17 15:29; Admin Dose 20 MG; Start 10/05/17 at 15:41 Oxycodone HCl (Roxicodone) 10 mg Q3H PRN PO PAIN LEVEL 4-7 Last administered on 10/07/17 08:56; Admin Dose 10 MG; Start 10/05/17 at 15:41 Assessment/Plan Chief Complaint/Hosp Course Assessment and plan: 77-year-old female with: 1. Osteoarthritis of right knee - status post total right knee total arthroplasty POD # 2. - continue PT. analgesics adjusted as needed -Of note, agree with primary care teams anticoagulation choice of aspirin 325 twice daily, will go ahead and DC the heparin. 2. Anemia. Suspect postsurgical. Monitor for now. dispo/plan. continue PT . adjust analgesics as needed Discussed plan of care with Dr. Soto Problems: FARZANA MANZO Oct 07, 2017 12:50
[2017-10-07 14:17] VITALS: BP 116/58; RESP 18
[2017-10-07 20:26] VITALS: BP 115/57; RESP 20
[2017-10-08 03:09] VITALS: BP 114/72; RESP 18
[2017-10-08 05:59] LABS: BASOPHIL # 0.1 10^3/ul (0.0-0.1); BASOPHILS % 0.5 % (0.0-2.0); EOSINOPHILS # 0.2 10^3/ul (0.0-0.5); EOSINOPHILS % 2.1 % (0.0-7.0); HEMATOCRIT 25.7 % (37.0-47.0); HEMOGLOBIN 8.1 g/dl (12.0-16.0); LYMPHOCYTES # 3.2 10^3/ul (0.8-2.9); LYMPHOCYTES % 32.4 % (15.0-51.0); MEAN CORPUSCULAR HEMOGLOBIN 30.8 pg (29.0-33.0); MEAN CORPUSCULAR HGB CONC 31.5 g/dl (32.0-37.0); MEAN CORPUSCULAR VOLUME 97.7 fl (82.0-101.0); MEAN PLATELET VOLUME 10.3 fl (7.4-10.4); MONOCYTE # 1.1 10^3/ul (0.3-0.9); MONOCYTES % 10.6 % (0.0-11.0); NEUTROPHIL # 5.4 10^3/ul (1.6-7.5); NEUTROPHILS % 54.1 % (39.0-77.0); PLATELET COUNT 293 10^3/UL (140-415); RED BLOOD COUNT 2.63 10^6/ul (4.20-5.40); RED CELL DISTRIBUTION WIDTH 12.8 % (11.5-14.5); WHITE BLOOD COUNT 9.9 10^3/ul (4.8-10.8)
[2017-10-08] MEDS: DEXAMETHASONE 4 MG/ML 1 ML INJ IV SCH (06:02)
[2017-10-08] MEDS: PANTOPRAZOLE (EC) 40 MG TAB PO SCH (06:02)
[2017-10-08] MEDS: oxyCODONE 5 MG TAB PO PRN ×3 (06:11→20:43)
[2017-10-08 06:34] LABS: CALCIUM 8.1 mg/dl (8.4-10.2); CREATININE 0.69 mg/dl (0.44-1.00)
--- NOTE | 2017-10-08 07:29 | PN ---
Date/Time of Note Date/Time of Note DATE: 10/08/17 TIME: 07:27 Assessment/Plan VTE Prophylaxis VTE Prophylaxis Intervention: ambulation, SCD's, other (Aspirin 325 mg) Lines/Catheters IV Catheter Type (from Nrsg): Peripheral IV [place] in Place (from Nrsg): No Assessment/Plan Assessment/Plan -Pain Meds as needed -ASA for DVT Prophylaxis x 6 weeks outpatient discussed. Hospitalist has stopped heparin. -Continue monitoring as outpatient on discharge -Follow-up at scheduled postop outpatient appointment or sooner if there is any issue. -Patient Stable -Discharge to SNF Subjective 24 Hr Interval Summary 77-year-old female postop day 3 status post right total knee arthroplasty. Patient resting comfortably in bed with pillows under the foot/ankle and leg in full extension. Denies any pain complaints. Denies any acute overnight events. Patient has been approved for alf facility but awaiting an open room. Continues with physical therapy and continues to improve. Exam/Review of Systems Vital Signs Vitals Vital Signs Date Time Temp Pulse Resp B/P Pulse Ox O2 Delivery O2 Flow Rate FiO2 10/08/17 03:09 98.3 76 18 114/72 98 10/05/17 20:00 Nasal Cannula 2.0 Intake and Output 10/07/17 10/07/17 10/08/17 14:59 22:59 06:59 Intake Total 460 ml 400 ml Output Total 1600 ml Balance -1140 ml 400 ml Exam Free Text/Dictation -No complications with dressing intact. -5/5 Tibialis Anterior, EHL Gastrocnemius/Soleus and Peroneals -Normal Sensation -Palpable DP/PT, Capillary Refill <2 secs -No Distal Edema -Negative Manny Sign/No calf pain -Toes Freely Movable Constitutional: alert, oriented, well developed Results Result Diagram: 10/08/17 0445 10/08/17 0445 CHRIS PETERS PA-C Oct 08, 2017 07:28
[2017-10-08 08:12] VITALS: BP 101/60; RESP 18
[2017-10-08] MEDS: DOCUSATE SODIUM 100 MG CAP PO SCH ×2 (08:55→20:45)
[2017-10-08] MEDS: FERROUS FUMARATE (SR) TAB PO SCH ×2 (08:55→20:45)
[2017-10-08] MEDS: CELECOXIB 200 MG CAP PO SCH ×2 (08:55→20:45)
[2017-10-08] MEDS: GABAPENTIN 100 MG CAP PO SCH (08:56)
[2017-10-08] MEDS: ASPIRIN (EC) 325 MG TAB PO SCH ×2 (08:56→20:47)
--- NOTE | 2017-10-08 12:17 | CONS ---
Date/Time of Note Date/Time of Note DATE: 10/08/17 TIME: 12:16 Consult Date/Type/Reason Admit Date/Time Oct 05, 2017 at 06:24 Subjective No acute events overnight. Objective Vital Signs Date Time Temp Pulse Resp B/P Pulse Ox O2 Delivery O2 Flow Rate FiO2 10/08/17 08:12 97.8 77 18 101/60 92 10/05/17 20:00 Nasal Cannula 2.0 Intake and Output 10/07/17 10/07/17 10/08/17 14:59 22:59 06:59 Intake Total 460 ml 400 ml Output Total 1600 ml Balance -1140 ml 400 ml Exam Constitutional: oriented Psych: nl mood/affect Head: normocephalic Eyes: nl conjunctiva Neck: non-tender, supple Respiratory: clear to auscultation Cardiovascular: regular rate and rhythm Gastrointestinal: non-tender, soft Musculoskeletal: right knee with dressing in place Neurological: RESTAURANT GENERAL MANAGER II-XII intact, nl mental status, nl speech Skin: nl turgor Results/Medications Result Diagram: 10/08/1744410/08/17 0445 Results 24 hrs Laboratory Tests Test 10/08/17 04:45 White Blood Count 9.9 Red Blood Count 2.63 L Hemoglobin 8.1 L Hematocrit 25.7 L Mean Corpuscular Volume 97.7 Mean Corpuscular Hemoglobin 30.8 Mean Corpuscular Hemoglobin Concent 31.5 L Red Cell Distribution Width 12.8 Platelet Count 293 Mean Platelet Volume 10.3 Neutrophils % 54.1 Lymphocytes % 32.4 Monocytes % 10.6 Eosinophils % 2.1 Basophils % 0.5 Nucleated Red Blood Cells % 0.0 Neutrophils # 5.4 Lymphocytes # 3.2 H Monocytes # 1.1 H Eosinophils # 0.2 Basophils # 0.1 Nucleated Red Blood Cells # 0.0 Sodium Level 142 Potassium Level 4.0 Chloride Level 106 Carbon Dioxide Level 32 H Anion Gap 8 Blood Urea Nitrogen 11 Creatinine 0.69 Glucose Level 97 Calcium Level 8.1 L Medications Current Medications Zolpidem Tartrate (Ambien) 5 mg HS PRN PO INSOMNIA; Start 10/05/17 at 11:30 Ondansetron HCl (Zofran Inj) 4 mg Q4H PRN IV NAUSEA AND/OR VOMITING; Start 10/06/17 at 11:30 Miscellaneous Information (Note) NOTE XX ; Start 10/05/17 at 11:30 Aspirin (Ecotrin) 325 mg BID PO Last administered on 10/08/17 08:56; Admin Dose 325 MG; Start 10/06/17 at 09:00 Celecoxib (Celebrex) 200 mg BID PO Last administered on 10/08/17 08:55; Admin Dose 200 MG; Start 10/06/17 at 09:00 Dexamethasone (Decadron) 4 mg DAILY@07 IV Last administered on 10/08/17 06:02 ; Admin Dose 4 MG; Start 10/06/17 at 07:00; Stop 10/09/17 at 06:59 Pantoprazole (Protonix Tab) 40 mg DAILY@06 PO Last administered on 10/08/17 06:02; Admin Dose 40 MG; Start 10/06/17 at 06:00 Docusate Sodium/ Ferrous Fumarate (Fritz-Sequels) 1 tab BID PO Last administered on 10/08/17 08:55; Admin Dose 1 TAB; Start 10/06/17 at 09:00 Docusate Sodium (Colace) 200 mg BID PO Last administered on 10/08/17 08:55; Admin Dose 200 MG; Start 10/06/17 at 09:00; Stop 10/09/17 at 08:59 Simethicone (Mylicon) 80 mg TID PRN PO DISTENSION/GAS/BLOATING; Start 10/05/17 at 11:30 Senna/Docusate Sodium (Senokot-S) 2 tab BID PRN PO CONSTIPATION; Start at 11:30 Magnesium Hydroxide (Milk Of Mag) 30 ml HS PRN PO CONSTIPATION; Start 10/05/17 at 11:30 Bisacodyl (Dulcolax Supp) 10 mg DAILY PRN [place] CONSTIPATION; Start 10/05/17 at 11 :30 Sodium Biphosphate/ Sodium Phosphate (Fleet Enema) 133 ml DAILY PRN [place] CONSTIPATION; Start 10/05/17 at 11:30 Diphenhydramine HCl (Benadryl) 25 mg Q4H PRN IM ITCHING OR RASH; Start at 11:30 Naloxone HCl (Narcan) 0.2 mg Q2M PRN IV DECREASED REPIRATORY RATE; Start at 11:30 Gabapentin (Neurontin) 100 mg BID PO Last administered on 10/08/17 08:56; Admin Dose 100 MG; Start 10/05/17 at 21:00; Stop 10/08/17 at 20:59 Oxycodone HCl (Roxicodone) 20 mg Q3H PRN PO PAIN LEVEL 8-10 Last administered on 10/07/17 19:40; Admin Dose 20 MG; Start 10/05/17 at 15:41 Oxycodone HCl (Roxicodone) 10 mg Q3H PRN PO PAIN LEVEL 4-7 Last administered on 10/08/17 06:11; Admin Dose 10 MG; Start 10/05/17 at 15:41 Assessment/Plan Chief Complaint/Hosp Course Assessment and plan: 77-year-old female with: 1. Osteoarthritis of right knee - status post total right knee total arthroplasty POD # 3. - continue PT. analgesics adjusted as needed - on aspirin 325 twice daily -Patient may discharged later today to care home facility 2. Anemia. Suspect postsurgical. Monitor for now. dispo/plan. continue PT . adjust analgesics as needed Problems: FARZANA MANZO Oct 08, 2017 12:17
[2017-10-08 14:33] VITALS: BP 102/56; RESP 18
[2017-10-08 20:00] VITALS: BP 113/60; RESP 19
[2017-10-09 02:21] VITALS: BP 110/59; RESP 19
[2017-10-09] MEDS: PANTOPRAZOLE (EC) 40 MG TAB PO SCH (05:10)
[2017-10-09] MEDS: oxyCODONE 5 MG TAB PO PRN ×3 (05:10→19:00)
[2017-10-09 05:12] LABS: BASOPHILS % 0.3 % (0.0-2.0); EOSINOPHILS # 0.2 10^3/ul (0.0-0.5); EOSINOPHILS % 1.9 % (0.0-7.0); HEMATOCRIT 28.2 % (37.0-47.0); LYMPHOCYTES # 3.3 10^3/ul (0.8-2.9); LYMPHOCYTES % 31.5 % (15.0-51.0); MEAN CORPUSCULAR HEMOGLOBIN 31.5 pg (29.0-33.0); MEAN CORPUSCULAR HGB CONC 31.9 g/dl (32.0-37.0); MEAN CORPUSCULAR VOLUME 98.6 fl (82.0-101.0); MEAN PLATELET VOLUME 9.7 fl (7.4-10.4); MONOCYTE # 0.9 10^3/ul (0.3-0.9); MONOCYTES % 8.9 % (0.0-11.0); NEUTROPHILS % 56.8 % (39.0-77.0); PLATELET COUNT 332 10^3/UL (140-415); RED BLOOD COUNT 2.86 10^6/ul (4.20-5.40); RED CELL DISTRIBUTION WIDTH 12.5 % (11.5-14.5); WHITE BLOOD COUNT 10.5 10^3/ul (4.8-10.8)
[2017-10-09 05:47] LABS: CALCIUM 8.6 mg/dl (8.4-10.2); CREATININE 0.71 mg/dl (0.44-1.00); POTASSIUM 4.2 mmol/L (3.5-5.1)
[2017-10-09 07:42] VITALS: BP 109/57; RESP 20
[2017-10-09] MEDS: ASPIRIN (EC) 325 MG TAB PO SCH ×2 (08:15→20:20)
[2017-10-09] MEDS: CELECOXIB 200 MG CAP PO SCH ×2 (08:15→20:20)
[2017-10-09] MEDS: FERROUS FUMARATE (SR) TAB PO SCH ×2 (08:15→20:20)
--- NOTE | 2017-10-09 09:04 | CONS ---
Date/Time of Note Date/Time of Note DATE: 10/09/17 TIME: 09:00 Assessment/Plan Assessment/Plan Chief Complaint/Hosp Course 77-year-old female with right knee osteoarthritis , status post surgery: 1. Osteoarthritis of right knee - status post total right knee total arthroplasty POD # 4. - continue PT. analgesics adjusted as needed - on aspirin 325 twice daily 2. Anemia, likely chronic. stable. -Add iron panel and treat accordingly. dispo/plan. continue PT . Agree with DC planning to SNF. Problems: Consultation Date/Type/Reason Admit Date/Time Oct 05, 2017 at 06:24 Initial Consult Date 24 HR Interval Summary Free Text/Dictation No acute distress. DC planning to SNF in process,pending insurance authorization. Exam/Review of Systems Vital Signs Vitals Vital Signs Date Time Temp Pulse Resp B/P Pulse Ox O2 Delivery O2 Flow Rate FiO2 10/09/17 07:42 97.7 72 20 109/57 96 10/05/17 20:00 Nasal Cannula 2.0 Intake and Output 10/08/17 10/08/17 10/09/17 15:00 23:00 07:00 Intake Total 700 ml 420 ml Output Total 1000 ml 360 ml Balance -300 ml 60 ml Exam General: Well developed,adequately built female, not in any acute distress . HEENT: Normocephalic, Atraumatic, No laceration or hematoma; Eyes: PEERL, Conjunctiva clear, Anicteric sclera Neck: Supple without any lymphadenopathy, nontender, no JVD, no carotid bruits, trachea midline, no thyromegaly Cardiac: S1, S2 auscultated, regular rhythm and rate, no mumurs or gallop Pulmonary: Normal respiratory effort. Chest clear to auscultation bilaterally, no adventitious breath sounds GI: Abdomen normal to inspection. Soft, non tender, non- distended, no masses, no rebound tenderness or guarding. Bowel sounds active on all four quadrants Genitourinary: Deferred Extremities: Right knee surgical site intact.. No cyanosis, clubbing, or edema. Pulses [2+] bilaterally. Full ROM on all four extremities. No focal weakness appreciated. Neurologic: Alert to person, place, time, and situation. Affect appropriate, intact sensation. Skin: Clean,dry, and intact. No ecchymosis, no rashes, or lesions Results Result Diagram: 10/09/17 0440 10/09/17 0439 Results 24 hrs Laboratory Tests Test 10/09/17 04:39 10/09/17 04:40 Sodium Level 143 Potassium Level 4.2 Chloride Level 105 Carbon Dioxide Level 34 H Anion Gap 8 Blood Urea Nitrogen 13 Creatinine 0.71 Glucose Level 100 Calcium Level 8.6 White Blood Count 10.5 Red Blood Count 2.86 L Hemoglobin 9.0 L Hematocrit 28.2 L Mean Corpuscular Volume 98.6 Mean Corpuscular Hemoglobin 31.5 Mean Corpuscular Hemoglobin Concent 31.9 L Red Cell Distribution Width 12.5 Platelet Count 332 Mean Platelet Volume 9.7 Neutrophils % 56.8 Lymphocytes % 31.5 Monocytes % 8.9 Eosinophils % 1.9 Basophils % 0.3 Nucleated Red Blood Cells % 0.0 Neutrophils # 6.0 Lymphocytes # 3.3 H Monocytes # 0.9 Eosinophils # 0.2 Basophils # 0.0 Nucleated Red Blood Cells # 0.0 Medications Medications Current Medications Zolpidem Tartrate (Ambien) 5 mg HS PRN PO INSOMNIA; Start 10/05/17 at 11:30 Ondansetron HCl (Zofran Inj) 4 mg Q4H PRN IV NAUSEA AND/OR VOMITING; Start 10/06/17 at 11:30 Miscellaneous Information (Note) NOTE XX ; Start 10/05/17 at 11:30 Aspirin (Ecotrin) 325 mg BID PO Last administered on 10/09/17 08:15; Admin Dose 325 MG; Start 10/06/17 at 09:00 Celecoxib (Celebrex) 200 mg BID PO Last administered on 10/09/17 08:15; Admin Dose 200 MG; Start 10/06/17 at 09:00 Pantoprazole (Protonix Tab) 40 mg DAILY@06 PO Last administered on 10/09/17 05:10; Admin Dose 40 MG; Start 10/06/17 at 06:00 Docusate Sodium/ Ferrous Fumarate (Fritz-Sequels) 1 tab BID PO Last administered on 10/09/17 08:15; Admin Dose 1 TAB; Start 10/06/17 at 09:00 Docusate Sodium (Colace) 200 mg BID PO Last administered on 10/08/17 20:45; Admin Dose 200 MG; Start 10/06/17 at 09:00; Stop 10/09/17 at 08:59 Simethicone (Mylicon) 80 mg TID PRN PO DISTENSION/GAS/BLOATING; Start 10/05/17 at 11:30 Senna/Docusate Sodium (Senokot-S) 2 tab BID PRN PO CONSTIPATION; Start at 11:30 Magnesium Hydroxide (Milk Of Mag) 30 ml HS PRN PO CONSTIPATION; Start 10/05/17 at 11:30 Bisacodyl (Dulcolax Supp) 10 mg DAILY PRN [place] CONSTIPATION; Start 10/05/17 at 11 :30 Sodium Biphosphate/ Sodium Phosphate (Fleet Enema) 133 ml DAILY PRN [place] CONSTIPATION; Start 10/05/17 at 11:30 Diphenhydramine HCl (Benadryl) 25 mg Q4H PRN IM ITCHING OR RASH; Start at 11:30 Naloxone HCl (Narcan) 0.2 mg Q2M PRN IV DECREASED REPIRATORY RATE; Start at 11:30 Oxycodone HCl (Roxicodone) 20 mg Q3H PRN PO PAIN LEVEL 8-10 Last administered on 10/08/17 20:43; Admin Dose 20 MG; Start 10/05/17 at 15:41 Oxycodone HCl (Roxicodone) 10 mg Q3H PRN PO PAIN LEVEL 4-7 Last administered on 10/09/17 05:10; Admin Dose 10 MG; Start 10/05/17 at 15:41 ASHTYN CROW NP Oct 09, 2017 09:04
--- NOTE | 2017-10-09 09:14 | PN ---
Date/Time of Note Date/Time of Note DATE: 10/09/17 TIME: 09:13 Assessment/Plan VTE Prophylaxis VTE Prophylaxis Intervention: ambulation, SCD's, other (Aspirin 325 mg) Lines/Catheters IV Catheter Type (from Nrsg): [place] Lock [place] in Place (from Nrsg): No Assessment/Plan Assessment/Plan -Pain Meds as needed -ASA for DVT Prophylaxis x 6 weeks outpatient discussed. -Continue monitoring as outpatient on discharge -Follow-up at scheduled postop outpatient appointment or sooner if there is any issue. -Patient Stable -Discharge to SNF vs ARU Subjective 24 Hr Interval Summary 77-year-old female postop day 4 status post right total knee arthroplasty. Patient continues to do well. Continue with physical therapy and improving in functionality. Currently awaiting authorization for transfer. Patient is expected to be transferred to acute rehab facility later today versus tomorrow. Pain Control: well controlled Exam/Review of Systems Vital Signs Vitals Vital Signs Date Time Temp Pulse Resp B/P Pulse Ox O2 Delivery O2 Flow Rate FiO2 10/09/17 07:42 97.7 72 20 109/57 96 10/05/17 20:00 Nasal Cannula 2.0 Intake and Output 10/08/17 10/08/17 10/09/17 15:00 23:00 07:00 Intake Total 700 ml 420 ml Output Total 1000 ml 360 ml Balance -300 ml 60 ml Exam Free Text/Dictation -No complications with dressing intact. -5/5 Tibialis Anterior, EHL Gastrocnemius/Soleus and Peroneals -Normal Sensation -Palpable DP/PT, Capillary Refill <2 secs -No Distal Edema -Negative Manny Sign/No calf pain -Toes Freely Movable Results Result Diagram: 10/09/17 0440 10/09/17 0439 CHRIS PETERS PA-C Oct 09, 2017 09:14
[2017-10-09 10:45] LABS: IRON 53 ug/dl (35-150)
[2017-10-09 10:54] LABS: TOTAL IRON BINDING CAPACITY 292 ug/dl (241-421)
[2017-10-09 15:00] VITALS: BP 108/60; RESP 20
[2017-10-09 19:59] VITALS: BP 131/60; RESP 16
[2017-10-10 02:25] VITALS: BP 132/60; RESP 14
[2017-10-10] MEDS: oxyCODONE 5 MG TAB PO PRN ×3 (04:33→13:59)
[2017-10-10 05:17] LABS: BASOPHILS % 0.4 % (0.0-2.0); EOSINOPHILS # 0.2 10^3/ul (0.0-0.5); EOSINOPHILS % 2.6 % (0.0-7.0); HEMATOCRIT 29.4 % (37.0-47.0); HEMOGLOBIN 9.4 g/dl (12.0-16.0); LYMPHOCYTES # 3.2 10^3/ul (0.8-2.9); LYMPHOCYTES % 37.7 % (15.0-51.0); MEAN CORPUSCULAR HEMOGLOBIN 30.9 pg (29.0-33.0); MEAN CORPUSCULAR VOLUME 96.7 fl (82.0-101.0); MEAN PLATELET VOLUME 9.4 fl (7.4-10.4); MONOCYTE # 0.8 10^3/ul (0.3-0.9); MONOCYTES % 9.3 % (0.0-11.0); NEUTROPHIL # 4.2 10^3/ul (1.6-7.5); NEUTROPHILS % 49.6 % (39.0-77.0); PLATELET COUNT 367 10^3/UL (140-415); RED BLOOD COUNT 3.04 10^6/ul (4.20-5.40); RED CELL DISTRIBUTION WIDTH 12.4 % (11.5-14.5); WHITE BLOOD COUNT 8.4 10^3/ul (4.8-10.8)
[2017-10-10 05:33] LABS: CALCIUM 8.8 mg/dl (8.4-10.2); CREATININE 0.76 mg/dl (0.44-1.00); POTASSIUM 4.4 mmol/L (3.5-5.1)
[2017-10-10] MEDS: PANTOPRAZOLE (EC) 40 MG TAB PO SCH (06:14)
[2017-10-10 07:43] VITALS: BP 111/56; RESP 18
[2017-10-10] MEDS: ASPIRIN (EC) 325 MG TAB PO SCH (09:19)
[2017-10-10] MEDS: FERROUS FUMARATE (SR) TAB PO SCH (09:19)
[2017-10-10] MEDS: CELECOXIB 200 MG CAP PO SCH (09:20)
--- NOTE | 2017-10-10 09:54 | CONS ---
Date/Time of Note Date/Time of Note DATE: 10/10/17 TIME: 09:53 Assessment/Plan Assessment/Plan Chief Complaint/Hosp Course 77-year-old female with right knee osteoarthritis , status post surgery: 1. Osteoarthritis of right knee - status post total right knee total arthroplasty POD # 4. - continue PT. analgesics adjusted as needed - on aspirin 325 twice daily 2. Anemia, likely chronic. stable. dispo/plan. continue PT . Agree with DC planning to SNF. Patient was seen in collaboration with . Problems: Consultation Date/Type/Reason Admit Date/Time Oct 05, 2017 at 06:24 24 HR Interval Summary Free Text/Dictation Doing well. For discharge to assisted facility today. Exam/Review of Systems Vital Signs Vitals Vital Signs Date Time Temp Pulse Resp B/P Pulse Ox O2 Delivery O2 Flow Rate FiO2 10/10/17 07:43 98.2 65 18 111/56 96 Intake and Output 10/09/17 10/09/17 10/10/17 15:00 23:00 07:00 Intake Total 770 ml 400 ml Output Total 700 ml Balance 70 ml 400 ml Exam General: Well developed,adequately built female, not in any acute distress . HEENT: Normocephalic, Atraumatic, No laceration or hematoma; Eyes: PEERL, Conjunctiva clear, Anicteric sclera Neck: Supple without any lymphadenopathy, nontender, no JVD, no carotid bruits, trachea midline, no thyromegaly Cardiac: S1, S2 auscultated, regular rhythm and rate, no mumurs or gallop Pulmonary: Normal respiratory effort. Chest clear to auscultation bilaterally, no adventitious breath sounds GI: Abdomen normal to inspection. Soft, non tender, non- distended, no masses, no rebound tenderness or guarding. Bowel sounds active on all four quadrants Genitourinary: Deferred Extremities: Right knee surgical site intact.. No cyanosis, clubbing, or edema. Pulses [2+] bilaterally. Full ROM on all four extremities. No focal weakness appreciated. Neurologic: Alert to person, place, time, and situation. Affect appropriate, intact sensation. Skin: Clean,dry, and intact. No ecchymosis, no rashes, or lesions Results Result Diagram: 10/10/17 0450 10/10/17 045 Results 24 hrs Laboratory Tests Test 10/10/17 04:50 White Blood Count 8.4 Red Blood Count 3.04 L Hemoglobin 9.4 L Hematocrit 29.4 L Mean Corpuscular Volume 96.7 Mean Corpuscular Hemoglobin 30.9 Mean Corpuscular Hemoglobin Concent 32.0 Red Cell Distribution Width 12.4 Platelet Count 367 Mean Platelet Volume 9.4 Neutrophils % 49.6 Lymphocytes % 37.7 Monocytes % 9.3 Eosinophils % 2.6 Basophils % 0.4 Nucleated Red Blood Cells % 0.0 Neutrophils # 4.2 Lymphocytes # 3.2 H Monocytes # 0.8 Eosinophils # 0.2 Basophils # 0.0 Nucleated Red Blood Cells # 0.0 Sodium Level 142 Potassium Level 4.4 Chloride Level 104 Carbon Dioxide Level 33 H Anion Gap 9 Blood Urea Nitrogen 13 Creatinine 0.76 Glucose Level 99 Calcium Level 8.8 Medications Medications Current Medications Zolpidem Tartrate (Ambien) 5 mg HS PRN PO INSOMNIA; Start 10/05/17 at 11:30 Ondansetron HCl (Zofran Inj) 4 mg Q4H PRN IV NAUSEA AND/OR VOMITING; Start 10/06/17 at 11:30 Miscellaneous Information (Note) NOTE XX ; Start 10/05/17 at 11:30 Aspirin (Ecotrin) 325 mg BID PO Last administered on 10/10/17 09:19; Admin Dose 325 MG; Start 10/06/17 at 09:00 Celecoxib (Celebrex) 200 mg BID PO Last administered on 10/10/17 09:20; Admin Dose 200 MG; Start 10/06/17 at 09:00 Pantoprazole (Protonix Tab) 40 mg DAILY@06 PO Last administered on 10/10/17 06:14; Admin Dose 40 MG; Start 10/06/17 at 06:00 Docusate Sodium/ Ferrous Fumarate (Fritz-Sequels) 1 tab BID PO Last administered on 10/10/17 09:19; Admin Dose 1 TAB; Start 10/06/17 at 09:00 Simethicone (Mylicon) 80 mg TID PRN PO DISTENSION/GAS/BLOATING; Start 10/05/17 at 11:30 Senna/Docusate Sodium (Senokot-S) 2 tab BID PRN PO CONSTIPATION; Start at 11:30 Magnesium Hydroxide (Milk Of Mag) 30 ml HS PRN PO CONSTIPATION; Start 10/05/17 at 11:30 Bisacodyl (Dulcolax Supp) 10 mg DAILY PRN [place] CONSTIPATION; Start 10/05/17 at 11 :30 Sodium Biphosphate/ Sodium Phosphate (Fleet Enema) 133 ml DAILY PRN [place] CONSTIPATION; Start 10/05/17 at 11:30 Diphenhydramine HCl (Benadryl) 25 mg Q4H PRN IM ITCHING OR RASH; Start at 11:30 Naloxone HCl (Narcan) 0.2 mg Q2M PRN IV DECREASED REPIRATORY RATE; Start at 11:30 Oxycodone HCl (Roxicodone) 20 mg Q3H PRN PO PAIN LEVEL 8-10 Last administered on 10/10/17 09:20; Admin Dose 20 MG; Start 10/05/17 at 15:41 Oxycodone HCl (Roxicodone) 10 mg Q3H PRN PO PAIN LEVEL 4-7 Last administered on 10/09/17 19:00; Admin Dose 10 MG; Start 10/05/17 at 15:41 ASHTYN CROW NP Oct 10, 2017 09:54
--- NOTE | 2017-10-10 12:15 | PN ---
Date/Time of Note Date/Time of Note DATE: 10/10/17 TIME: 12:11 Assessment/Plan VTE Prophylaxis VTE Prophylaxis Intervention: ambulation, SCD's, other (ASA 325mg) Lines/Catheters IV Catheter Type (from Nrsg): Saline Lock [place] in Place (from Nrsg): No Assessment/Plan Assessment/Plan -Pain Meds as needed -ASA for DVT Prophylaxis x 6 weeks outpatient discussed. -Continue monitoring as outpatient on discharge -Follow-up at scheduled postop outpatient appointment or sooner if there is any issue. -Patient Stable -Discharge to SNF vs ARU Subjective 24 Hr Interval Summary 77 yo F POD5 s/p R TKA. No acute events. Plan to d/c today. No complaints. Pain Control: well controlled Exam/Review of Systems Vital Signs Vitals Vital Signs Date Time Temp Pulse Resp B/P Pulse Ox O2 Delivery O2 Flow Rate FiO2 10/10/17 07:43 98.2 65 18 111/56 96 Intake and Output 10/09/17 10/09/17 10/10/17 15:00 23:00 07:00 Intake Total 770 ml 400 ml Output Total 700 ml Balance 70 ml 400 ml Exam Free Text/Dictation -No complications with dressing intact. -5/5 Tibialis Anterior, EHL Gastrocnemius/Soleus and Peroneals -Normal Sensation -Palpable DP/PT, Capillary Refill <2 secs -No Distal Edema -Negative Manny Sign/No calf pain -Toes Freely Movable Constitutional: alert, oriented, well developed Results Result Diagram: 10/10/17 0450 10/10/17 0450 CHRIS PETERS PA-C Oct 10, 2017 12:15
--- NOTE | 2017-10-11 08:24 | DS ---
Date/Time of Note Date/Time of Note DATE: 10/11/17 TIME: 08:22 Discharge Summary Admission/Discharge Info Admit Date/Time Oct 05, 2017 at 06:24 Discharge Date/Time Oct 10, 2017 at 16:35 Discharge Diagnosis Status post right total knee replacement. Patient Condition: Good Hospital Course On the day of admission, the patient underwent right total knee arthroplasty Intraoperative complications: None Postoperative complications: None The patient was given prophylactic antibiotics and anticoagulants. On the day of surgery and first postoperative day patient was started on gait training and was taught usual restrictions following knee replacement On postoperative day 1 dressing was clean dry and intact. No complications were observed. On the day of discharge, the wound was clean and healing well; there was no sign of infection. Wound care instructions were discussed with the patient. Discharge Temperature: 98.2 Discharge White Blood Cell Count: 8.4 Discharge Hemoglobin: 9.4 The [facility] Arrangements were made for visiting nurses and home health/physical therapy. The patient will be seen in office at scheduled postoperative evaluation date given on their preoperative exam. Should patient complain of any problems prior to scheduled postoperative evaluation date, they may call into outpatient clinic to determine if they need to be scheduled at sooner appointment to be seen immediately if needed. Discharge medications: As per medication reconciliation form Diet: Same as preadmission diet. This is Chris Arora PA-C dictating discharge summary for Dr. Yi Campoverde. Home Meds No Active Prescriptions or Reported Meds Follow-up Plan Follow-up on postoperative appointment provided to you at your preoperative visit. Primary Care Provider CHRIS Tipton PA-C Oct 11, 2017 08:24
== END 2017-10-10 16:35 | DRG 470 ==
LOC: REC 06:24 → MS1 13:04
PROVIDERS: ADMIT Orthopaedic Surgery Adult Reconstructive Orthopaedic Surgery; ATTEND Orthopaedic Surgery Adult Reconstructive Orthopaedic Surgery
PROC: 0SRC069 Replacement of Right Knee Joint with Oxidized Zirconium on Polyethylene Synthetic Substitute, Cemented, Open Approach (ICD-10-PCS; principal; 2017-10-05 07:30)
DX: M17.11 Unilateral primary osteoarthritis, right knee (principal); D64.9 Anemia, unspecified; E78.5 Hyperlipidemia, unspecified; R73.03 Prediabetes; J30.9 Allergic rhinitis, unspecified
CPT/HCPCS: 73560; 80048; 82962; 83540; 85025; 86850; 86900; 86901; 86920; 87086; 88304; 88311; 97110; 97116; 97162; 97166; 97530; J0131; J0360; J0690; J1100; J1644; J2175; J2250; J2405; J2710; J2795; J3010; J7121

== ENCOUNTER → 2017-10-18 | Outpatient (CLI) | payer OTHER ==
--- NOTE | 2017-10-18 14:06 | HKNOTE ---
DATE OF SERVICE: 10/18/2017 CHIEF COMPLAINT: Followup. HISTORY OF PRESENT ILLNESS: This is a 77-year-old female status post a right total knee arthroplast y 2 weeks ago. She has been doing well. She is currently at [facility]. Jenni walden has been performing physical therapy. She is taking aspirin twice daily for DVT prophylaxis. She denies any chest pain or shortness of breath. She is using a walker for ambulation. Right knee incision has healed. Steri-Strips are intact. There is no drainage. -10-80 degrees ran ge of motion, stable to varus valgus stress. Calf is soft, nontender with a negative Manny's, 5/5 q uadriceps, hamstrings, tibialis anterior, gastrocsoleus. X-rays right knee, 3 views of the right kn ee demonstrated that the implant is in appropriate position. There are no fractures or dislocations . Date of surgery 10/05/2017. IMPRESSION: A 77-year-old female status post right total knee arthroplasty. PLAN: She can continue to be weightbearing as tolerated. She will finish her remaining aspirin. S he will continue outpatient physical therapy. She will follow up in 6 weeks. Dictated By: NAIDA FITZPATRICK/ANUSHKA Conf#: [id number] DID#: [id number]
== END | disposition home or self-care (01) ==
LOC: HKI 13:24
PROVIDERS: ATTEND Orthopaedic Surgery Adult Reconstructive Orthopaedic Surgery
DX: Z47.1 Aftercare following joint replacement surgery (principal); Z96.651 Presence of right artificial knee joint

== ENCOUNTER → 2017-11-17 | Outpatient (CLI) | payer OTHER ==
--- NOTE | 2017-11-17 15:15 | PN ---
Date/Time of Note Date/Time of Note DATE: 11/17/17 TIME: 15:06 Outpatient Progress Note Chief Complaint 6 weeks status post right total knee arthroplasty HPI 77-year-old female presents today for 6 week postoperative appointment status post right total knee arthroplasty. Continues taking aspirin for DVT prophylaxis. Denies any severe pain or injury since she was last seen on 2016. Patient continues with therapy but has had limited flexion. She is taking tramadol as needed for pain as she had drowsiness with Charlotte and prefers not to take Charlotte.Using single-point cane for assisted ambulation although she presents and walker today. Granddaughter is present today and translating today' s visit. Review of Systems Const: No Fever, no chills, no Fatigue, normal appetite, no diaphoresis. Resp: No SOB, no wheezing, no chest pain. CV: No chest pain, no palpitaions, no NEWBY. Physical Exam Blood pressure is 116/55, temperature is 98.8, pulse is 89, respiratory rate is 12, height is 5 feet, weight is 130 pounds General Appearance: well-developed, well-nourished, in no acute distress. Right knee: Well-healed surgical scarring to the anterior knee. No tenderness to palpation. No swelling or edema. Patient is able to fully extend on exam today. Patient is flexing up to 85 with pain at maximum level of flexion. Negative Homans sign. Patient is able to ambulate with assistance using single- point cane with slight limp on examination today. Mild discomfort with weightbearing today. Imaging: X-ray of the Right knee performed on 11/17/2017 showing all components appearing well aligned, attached and integrated to the bone. No signs of any lucency between metal and bone. Allergies Coded Allergies: No Known Allergy (Unverified , 10/04/17) Assessment/Plan * Concern regarding range of motion as it is up to 85 at 6 week postoperative was had. Concern was expressed to patient. Detailed description of at home therapy and exercises to improve range of motion to the right knee with instructions to perform every 1-2 hours discussed with patient and patient's granddaughter. Dr. Ortiz was also notified and he is in agreement with at home therapy. Dr. Ortiz also recommends follow-up in 2 weeks. Range of motion check in 2 weeks. * Request authorization for right knee manipulation under anesthesia as a precaution if patient's range of motion is still minimal to restore range of motion and break up scar tissue. * Follow-up 2 weeks * Patient may discontinue aspirin 325 mg as it is 6 weeks status post surgery. Continue with walking and range of motion. Pain medications as needed in regards to tramadol. Continue at home therapy and physical therapy. Medications Home Meds No Active Prescriptions or Reported Meds CRHIS PETERS PA-C Nov 17, 2017 15:15
--- NOTE | 2017-11-17 20:50 | RADRPT ---
PROCEDURE: Right knee radiographs. CLINICAL INDICATION: Right knee pain. Postop. TECHNIQUE: Three views. Weight bearing. Frontal, lateral, and patellar view. COMPARISON: No prior studies are available for comparison. FINDINGS: There is no fracture or dislocation. The soft tissues are normal. There is a total right knee arthroplasty which appears satisfactory. There is no lytic or blastic lesion. IMPRESSION: 1. Satisfactory postoperative appearance of the right knee. RPTAT: QQ .Darwin Banegas MD, MD Date Time Electronically viewed and signed by .Darwin Banegas MD, MD on 11/17/2017 20:50 .R/
== END | disposition home or self-care (01) ==
LOC: HKI 14:25
PROVIDERS: ATTEND Orthopaedic Surgery Adult Reconstructive Orthopaedic Surgery
DX: Z47.1 Aftercare following joint replacement surgery (principal); Z96.651 Presence of right artificial knee joint

== ENCOUNTER → 2017-12-01 | Outpatient (CLI) | END | disposition home or self-care (01) ==

== ENCOUNTER → 2017-12-08 | Outpatient (CLI) | END | disposition home or self-care (01) ==

== ENCOUNTER → 2018-03-27 | Outpatient (CLI) | END | disposition home or self-care (01) ==

== ENCOUNTER → 2018-10-02 | Outpatient (CLI) | END | disposition home or self-care (01) ==

== ENCOUNTER → 2019-01-09 | Outpatient (CLI) | payer OTHER ==
--- NOTE | 2019-01-09 15:53 | HKNOTE ---
DATE OF SERVICE: 01/09/2019 Ms. Montero returned today for orthopedic reevaluation and preoperative evaluation. She is scheduled for left total knee arthroplasty on 01/10/2019. She declined further conservative treatment. We dis cussed risks, benefits, alternatives of surgical intervention with the patient. Risks include but ar e not limited to infection, deep venous thrombosis, pulmonary embolism, damage to nerves and blood ve ssels, implant, dislocation, wear of prosthesis, loosening of prosthesis, need for revision surgery, heart attack, stroke, risks associated with anesthesia and even . The patient understood the dc sks, and informed consent was obtained. This was performed with the help of a Swedish-speaking inter preter. All questions were answered to patient's satisfaction. Dictated By: NAIDA FITZPATRICK/ANUSHKA Conf#: [id number] DID#: [id number]
== END | disposition home or self-care (01) ==
LOC: HKI 13:27
PROVIDERS: ATTEND Orthopaedic Surgery Adult Reconstructive Orthopaedic Surgery
DX: Z01.818 Encounter for other preprocedural examination (principal)
CPT/HCPCS: G0463

== ENCOUNTER → 2019-01-23 | Outpatient (CLI) | payer OTHER ==
--- NOTE | 2019-01-23 14:49 | HKNOTE ---
DATE OF SERVICE: 01/23/2019 HISTORY OF PRESENT ILLNESS: Ms. Montero is 2 weeks status post left total knee arthroplasty. She is currently at a rehabilitation center. She is using a walker and a wheelchair. She has been taking h er aspirin twice daily. Her pain is controlled. DATE OF SURGERY: 01/10/2019, left total knee arthroplasty. LEFT KNEE EXAMINATION: Healed incision. No drainage, -10 to 70 degrees range of motion, stable to v arus valgus stress, 5/5 function of quadriceps, tibialis anterior, gastric soleus. ASSESSMENT AND PLAN: A 78-year-old female 2 weeks status post left total knee arthroplasty. PLAN: She can be weightbearing as tolerated. She will finish her postoperative aspirin therapy. Sh e will continue physical therapy 3 times daily. She will bring in x-rays of her left knee at the nex t visit. She does not require pain medications. Dictated By: NAIDA FITZPATRICK/ANUSHKA Conf#: [id number] DID#: [id number]
== END | disposition home or self-care (01) ==
LOC: HKI 13:50
PROVIDERS: ATTEND Orthopaedic Surgery Adult Reconstructive Orthopaedic Surgery
DX: Z47.1 Aftercare following joint replacement surgery (principal); Z96.652 Presence of left artificial knee joint

== ENCOUNTER → 2019-02-13 | Outpatient (CLI) | payer OTHER ==
--- NOTE | 2019-02-13 16:22 | HKNOTE ---
DATE OF SERVICE: 02/13/2019 HISTORY OF PRESENT ILLNESS: Ms. Montiel is 4 weeks status post left total knee arthroplasty. She has been doing well. She is using a walker. She is taking aspirin twice daily for DVT prophylaxis. Sh e denies any fevers, chills. She has no complaints. DATE OF SURGERY: 01/10/2019. LEFT KNEE EXAMINATION: Healed midline incision is -10 to 90 degrees range of motion, stable to varus valgus stress, 5/5 function of quadriceps, tibialis anterior, gastric soleus. IMAGING: X-rays of left knee demonstrate the prosthesis to be in acceptable alignment. No fractures , dislocations or loosening. IMPRESSION: A 78-year-old female 5 weeks status post left total knee arthroplasty. PLAN: She can be weightbearing as tolerated. She will finish her remaining aspirin for DVT prophyla xis. We will request authorization for outpatient physical therapy. She will follow up in 3 months. Dictated By: NAIDA FITZPATRICK/ANUSHKA Conf#: [id number] DID#: [id number]
--- NOTE | 2019-02-14 08:58 | RADRPT ---
PROCEDURE: Left knee radiographs. CLINICAL INDICATION: Left knee pain. Postop. TECHNIQUE: Three views. Weight bearing. Frontal, lateral, and patellar view. COMPARISON: 01/10/2019. FINDINGS: There is no fracture or dislocation. There is a joint effusion. There is a total left knee arthroplasty which appears satisfactory. There is no lytic or blastic lesion. IMPRESSION: 1. Joint effusion. 2. Otherwise unremarkable postoperative appearance of the left knee. RPTAT: QQ .Darwin Banegas MD, Date Time Electronically viewed and signed by .Darwin Banegas MD, on 02/14/2019 08:58 .R/
== END | disposition home or self-care (01) ==
LOC: HKI 14:25
PROVIDERS: ATTEND Orthopaedic Surgery Adult Reconstructive Orthopaedic Surgery
DX: Z09 Encounter for follow-up examination after completed treatment for conditions other than malignant neoplasm (principal); Z96.652 Presence of left artificial knee joint

== ENCOUNTER → 2019-03-13 | Outpatient (CLI) | payer OTHER ==
--- NOTE | 2019-03-13 19:59 | HKNOTE ---
DATE OF SERVICE: HISTORY OF PRESENT ILLNESS: Ms. Montero is a 2-month status post left total knee arthroplasty. She i s using a cane for ambulation. She did not perform outpatient physical therapy postoperatively. She has finished her course of aspirin twice daily. Her pain is controlled. GAIT: Nonantalgic gait with reciprocal gait pattern. LEFT KNEE EXAMINATION: Healed incision, 0 to 90 degrees range of motion, stable to varus valgus stre ss, 4/5 strength of quadriceps, negative Homans test. IMAGING: X-rays of the left knee, 4 views of the left knee demonstrate the prosthesis to be in accep table alignment. No fractures, dislocations or loosening. IMPRESSION: A 79-year-old female, 2 months status post left total knee arthroplasty. PLAN: We will request authorization for outpatient physical therapy. Explained to Ms. Montiel that l ikely she may not gain additional range of motion. She does not require pain medications. She will follow up in 6 weeks. Dictated By: NAIDA FITZPATRICK/ANUSHKA Conf#: [id number] DID#: [id number]
--- NOTE | 2019-03-15 08:19 | RADRPT ---
PROCEDURE: Left knee series CLINICAL INDICATION: Pain TECHNIQUE: AP weightbearing, lateral weightbearing and sunrise views left knee were obtained COMPARISON: Left knee series 02/13/2019 FINDINGS: Unremarkable total left knee prosthesis. No acute fractures or dislocations. No focal bony blastic or lytic lesions. Small suprapatellar left knee joint effusion. Soft tissues otherwise unremarkable. IMPRESSION: Unremarkable total left knee prosthesis without fracture or dislocation. Small suprapatellar left kne e joint effusion. RPTAT:AAJJ Physician Justin Date Time Electronically viewed and signed by Madelin Blood Physician on 03/15/2019 08:18 BM/
== END | disposition home or self-care (01) ==
LOC: HKI 13:40
PROVIDERS: ATTEND Orthopaedic Surgery Adult Reconstructive Orthopaedic Surgery
DX: Z47.1 Aftercare following joint replacement surgery (principal); Z96.652 Presence of left artificial knee joint; Z79.82 Long term (current) use of aspirin

== ENCOUNTER 2019-08-24 14:03 | Emergency (ER) | payer OTHER ==
[~2019-08-24] VITALS: Ht 149.9 cm; Wt 56.1 kg
[2019-08-24 14:07] VITALS: BP 110/64; PULSE 83; RESP 16; Ht 149.9 cm; Wt 56.1 kg
[2019-08-24] MEDS ORDERED: KETOROLAC 15 MG INJ IM STA (15:23)
== END 2019-08-24 16:20 | disposition home or self-care (01) ==
LOC: FTE 14:03
DX: M25.512 Pain in left shoulder (principal)
CPT/HCPCS: 73030; J1885; 96372